=== PATIENT | female | born 1950 | race Caucasian/White ===

== ENCOUNTER 2017-02-26 18:08 | Observation (INO) | payer OTHER ==
[~2017-02-26] VITALS: Ht 152.4 cm; Wt 42.9 kg
[~2017-02-26 18:08] MED LIST: BENTYL20 MG PO; HEADACHE PAIN1 EACH PO; LO-DOSE ASPIRIN81 M1 PO; MAGNESIUM CITR296 M1 PO; NEXIUM40 MG PO; VITAMIN B-6 PO
[2017-02-26 18:40] LABS: HEMATOCRIT 38.6 % (36.0-46.0); MCH 30.1 PG (29.0-34.0); MCHC 33.2 G/DL (30.0-36.0); MCV 90.8 FL (83-99); MEAN PLAT.VOLUME 10.2 uM^3 (9.5-12.4); PLATELET COUNT 313 K/uL (156-360); RBC DIS.WIDTH-CV 13.1 % (11.8-14.6); RED BLOOD COUNT 4.25 M/uL (3.80-5.20); WHITE BLOOD COUNT 9.1 K/uL (4.1-10.2)
[2017-02-26 18:50] LABS: CHLORIDE 111 mEq/L (99-109); POTASSIUM 3.4 mEq/L (3.7-5.4)
[2017-02-26 18:51] LABS: SODIUM 139 mEq/L (136-147)
[2017-02-26 18:52] LABS: D-DIMER ELISA 0.57 mg/L FEU (< 0.57); GLUCOSE 108 mg/dL (70-99)
[2017-02-26 18:54] LABS: ANION GAP 9 MEQ/L (2-14)
[2017-02-26 18:56] LABS: GFR ESTIMATE (CALCULATED) 40 mL/min/
[2017-02-26 18:57] LABS: UREA NITROGEN (BUN) 29 mg/dL (9-23)
[2017-02-26 19:01] LABS: TROP-I INTERPRETATION NEGATIVE; TROPONIN-I < 0.01 ng/mL (0.0-0.30)
[2017-02-26] MEDS ORDERED: TRAZODONE HCL50 MG PO (19:26)
[2017-02-26] MEDS ORDERED: VITAMIN D-3 401 EACH PO (19:27)
[2017-02-26] MEDS ORDERED: CALCIUM 500 MG1 EACH PO (19:27)
[2017-02-26] MEDS ORDERED: FLONASE16 G1 BOTH NARES (19:27)
[2017-02-26 23:06] VITALS: BP 114/64
[2017-02-27 01:29] LABS: TROP-I INTERPRETATION NEGATIVE; TROPONIN-I < 0.01 ng/mL (0.0-0.30)
[2017-02-27 04:32] VITALS: BP 102/60
[2017-02-27 07:43] LABS: HEMATOCRIT 35.8 % (36.0-46.0); MCH 30.1 PG (29.0-34.0); MCHC 32.4 G/DL (30.0-36.0); MEAN PLAT.VOLUME 10.5 uM^3 (9.5-12.4); PLATELET COUNT 269 K/uL (156-360); RBC DIS.WIDTH-CV 13.2 % (11.8-14.6); RBC DIS.WIDTH-SD 45.2 % (39-53); RED BLOOD COUNT 3.85 M/uL (3.80-5.20); WHITE BLOOD COUNT 6.7 K/uL (4.1-10.2)
[2017-02-27 08:13] LABS: ALKALINE PHOSPHATASE 52 IU/L (3-129); ANION GAP 6 MEQ/L (2-14); CHLORIDE 112 MEQ/L (99-109); GFR ESTIMATE (CALCULATED) 59 mL/min/; GLUCOSE 96 mg/dL (70-99); POTASSIUM 3.7 MEQ/L (3.7-5.4); SAMPLE HEMOLYSIS CHECK 0; SAMPLE ICTERIC CHECK 0; SAMPLE LIPEMIA CHECK 0; SODIUM 141 MEQ/L (136-147); TOTAL BILIRUBIN 0.3 MG/DL (0.0-1.0); UREA NITROGEN (BUN) 26 mg/dL (9-23)
[2017-02-27 08:26] LABS: TROP-I INTERPRETATION NEGATIVE; TROPONIN-I < 0.01 ng/mL (0.0-0.30)
[2017-02-27 09:15] VITALS: BP 104/54
[2017-02-27] MEDS ORDERED: LO-DOSE ASPIRIN81 M2 PO (11:58)
== END 2017-02-27 13:17 | disposition home or self-care (01) ==
LOC: EME 18:08 → EDOF 21:23 → 5WEST 21:23
PROVIDERS: Emergency Medicine; Internal Medicine
DX: R07.89 Other chest pain (principal); N17.9 Acute kidney failure, unspecified; E87.6 Hypokalemia; R73.9 Hyperglycemia, unspecified; N18.3 Chronic kidney disease, stage 3 (moderate); F17.200 Nicotine dependence, unspecified, uncomplicated; K21.9 Gastro-esophageal reflux disease without esophagitis
CPT/HCPCS: 71020; 80048; 80053; 84484; 85027; 85379; 93005; 99281; 99285; G0378; J7030